=== PATIENT | female | born 1995 | race Caucasian/White ===

== ENCOUNTER 2020-01-25 10:54 | Emergency (ER) | payer OTHER, SELFPAY ==
--- NOTE | 2020-01-25 11:16 | CT_ITS ---
EXAMINATION: CT HEAD WITHOUT CONTRAST CLINICAL INFORMATION: Headache, left eye aura. COMPARISON: None TECHNIQUE: Contiguous axial imaging was performed from the skull base to vertex without intravenous administration of contrast. This CT examination was performed using dose optimization techniques as appropriate, variously including the following: *Automated exposure control *Adjustment of mA and/or kV according to patient size (this includes techniques or standardized protocols for targeted exams where dose is matched to indication/reason for exam; i.e. extremities or head) *Use of iterative reconstruction technique DLP: 652 mGy-cm FINDINGS: There is no evidence of acute intracranial hemorrhage or territorial infarction. No abnormal mass effect or midline shift is seen. [place] to white matter differentiation is well preserved. No extra-axial fluid collections are identified. The ventricles are normal in size. There is no abnormal attenuation within the brain parenchyma. The osseous structures and soft tissues are normal. The mastoid air cells and visualized portions of the paranasal sinuses are well aerated. CT/CT head/brain wo con IMPRESSION: No acute intracranial process seen.
--- NOTE | 2020-01-25 11:17 | ED.EYEPROB ---
HPI - Eye Problem General Chief complaint: Eye Problems Stated complaint: BLURRED VISION Time Seen by Provider: 01/25/20 10:56 Source: patient Mode of arrival: ambulatory Limitations: no limitations History of Present Illness chief complaint: other (has squiggly lines in L eye that is resolving and now has throbbing pain in head) Onset (ago): minute(s) (30) Onset description: sudden Duration: improved Location: left eye Eye Symptoms: pain Place: home Mechanism: none Severity: similar to previous episodes (has had ocular migraine in past but that time it was black spots today is squiggly lines) If Pain, Quality: throbbing Associated symptoms: headache Treatments Prior to Arrival: none Related Data Previous Rx's Medication Instructions Recorded glfxbpsvxl-byrhgmkjbcywp-yvfv 1 tab PO Q6H PRN #20 tab 01/25/20 cyclobenzaprine 10 mg PO TID PRN #14 tab 01/25/20 ondansetron 4 mg PO Q8H PRN #20 tab 01/25/20 Allergies Allergy/AdvReac Type Severity Reaction Status Date / Time No Known Allergies Allergy Verified 01/25/20 11:28 Review of Systems Review of Systems: Constitutional : No Fever, No Chills, No Fatigue ENT/Mouth : No sore throat, No Rhinorrhea Eyes: pos Eye Pain, No Swelling, No Redness Cardiovascular : No Chest Pain, No SOB, No Dyspnea on Exertion Respiratory : No Cough, No Sputum Gastrointestinal : pos Nausea, No Vomiting, No Diarrhea, No abdominal Pain Genitourinary : No Dysuria, No Urinary Frequency, No Hematuria, Musculoskeletal : No joint pain, No Myalgias, No Joint Swelling Skin : No Skin Lesions, No rash Neuro : No Weakness, No Numbness, No Dizziness, positive Headache Psych : No Anxiety/Panic, No Depression Heme/Lymph: No Bruising, No Bleeding,No Lymphadenopathy Endocrine : No Polyuria, No Polydipsia All other systems reviewed and are negative PMFSH Past Medical History Attestation statement: The following information was validated with the patient. Medical History Migraine Syncope Social History Social History (Updated 01/25/20 @ 11:21 by Nancy Sandoval DO) Smoking Status: Never smoker Use of substances other than those prescribed or required for medical reasons: No Advance Directives: No Advance Directives Information Provided: Yes Physical Exam Vital Signs: Vital Signs: Last Vital Signs Temp 97.9 F 01/25/20 11:22 Pulse 73 01/25/20 13:53 Resp 14 01/25/20 13:53 BP 101/65 01/25/20 13:53 Pulse Ox 98 01/25/20 13:53 Body Mass Index 16.7 Appearance: Alert. Oriented X3. No acute distress. Eyes: Pupils equal, round and reactive to light. ENT: Pharynx normal. Neck: Normal inspection. Neck supple. CVS: Normal heart rate and rhythm. Pulses normal. Respiratory: No respiratory distress. Breath sounds normal. Abdomen: Soft and non-tender. Skin: Skin warm and dry. Normal skin color. Normal skin turgor. Extremities: No lower extremity edema. No calf ttp Neuro: Oriented X 3. No motor deficit. No sensory deficit. CN 2 - 12 intact, PUPILS 4mm ERRL, visual hobbs intact, no drift Course Course Course Narrative: ocular symptoms gone but now patient has start of migraine, IV medications ordered, little effect with PO patient feels much better after medications likely migraine with aura MDM - Eye Problem MDM Narrative Medical decision making narrative: 25 yo female with hx of migraines prior ocular in the past here with resolving L eye squiggly lines now with start of nausea and headache - suspect ocular migraine, no focal deficits, will obtain CT head for mass, PO prophylactic medications Lab Data Labs: Lab Results 01/25/20 Range/Units 12:08 Urine Test NEGATIVE (NEGATIVE) Discharge Plan Discharge Clinical Impression: Ocular migraine Patient Disposition: Home, Self-Care Instructions: Migraine Headache (ED) Additional Instructions: return to ED for any worsening symptoms or concerns Prescriptions: New cyclobenzaprine 10 mg tablet 10 mg PO TID PRN (Reason: muscle spasm) Qty: 14 RF: 0 adezmmesin-parvqaszzysze-jqpr 50-325-40 mg tablet 1 tab PO Q6H PRN (Reason: pain) Qty: 20 RF: 0 ondansetron 4 mg tablet,disintegrating 4 mg PO Q8H PRN (Reason: nausea and vomiting) Qty: 20 RF: 0 Referrals: Ale Reno MD [Primary Care Provider] - 2 days (if not better) Stand Alone Forms: Work/School Release
[2020-01-25 11:22] VITALS: BP 108/74; PULSE 95; RESP 16; TEMP 36.6; O2SAT 95; BMI 16.7
[2020-01-25] MEDS: Butalb/Acetamin/Caff 50/325/40 TABLET 1 TAB PO (11:28)
[2020-01-25] MEDS: SUMAtriptan succinate 50 MG TABLET PO (11:29)
[2020-01-25 11:46] VITALS: BP 103/68; PULSE 94; RESP 14; O2SAT 96
[2020-01-25 12:23] LABS: UPreg QC Valid YES; Urine Pregnancy NEGATIVE (NEGATIVE)
[2020-01-25] MEDS: 0.9 % Sodium Chloride 1,000 ML 999 ML IVCONT (13:02)
[2020-01-25] MEDS: Ketorolac Tromethamine 30 MG/ML VIAL IVPUSH (13:03)
[2020-01-25] MEDS: Metoclopramide HCl 10 MG/2 ML VIAL 5 MG IVPUSH (13:03)
[2020-01-25] MEDS: diphenhydrAMINE HCL 50 MG/ML VIAL 25 MG IVPUSH (13:03)
--- NOTE | 2020-01-25 13:05 | PC.NURSE ---
NO RELIEF FROM PRIOR MED ADMINISTRATION, IV WITH IV MED INTERVENTIONS ORDERED/GIVEN. PT AWAITING CT SCAN AT THIS TIME. REPORTS HEADACHE REMAINS TO B/L MU-ISM REGION, NO LIGHT SENSITIVITY, NAUSEA HAS RESOLVED WITH PRIOR ZOFRAN GIVEN.
[2020-01-25 13:53] VITALS: BP 101/65; PULSE 73; RESP 14; O2SAT 98
== END 2020-01-25 14:53 | disposition home or self-care (01) ==
PROVIDERS: Emergency Provider Emergency Medicine; PCP Internal Medicine
DX: G43.009 Migraine without aura, not intractable, without status migrainosus (principal); H53.8 Other visual disturbances; Z79.899 Other long term (current) drug therapy
CPT/HCPCS: 70450; 81025; 96361; 96374; 96375; 99284; J1200; J1885; J2765

== ENCOUNTER 2020-04-02 13:59 | Outpatient (REF) | payer OTHER, SELFPAY ==
--- NOTE | ~2020-04-02 | US_ITS ---
EXAMINATION: US SOFT TISSUE OF THE NECK CLINICAL INFORMATION: BB sized palpable nodule overlying left neck soft tissue. Assess with ultrasound. Age 25. COMPARISON: CT head noncontrast 01/25/2020 TECHNIQUE: Linear high frequency ultrasound is targeted to the left neck soft tissues in the area of palpable concern. Grayscale imaging and color Doppler are performed. FINDINGS: There is no cystic or solid mass demonstrated in the area of clinical concern. No skin thickening or edema tracking in the soft tissue planes. No lymphadenopathy. No hyperemia on color Doppler. US/US soft tiss head and/or neck IMPRESSION: No ultrasound correlate for palpable area of concern left neck soft tissue. If clinically indicated, further imaging could be performed with MRI.
== END 2020-04-02 14:00 | disposition home or self-care (01) ==
LOC: HO.US 13:59
PROVIDERS: Visit Provider Physician Assistant
DX: R22.1 Localized swelling, mass and lump, neck (principal)
CPT/HCPCS: 76536

== ENCOUNTER 2020-04-21 08:04 | Outpatient (REF) | payer OTHER, SELFPAY ==
[2020-04-21 08:42] LABS: MANUAL DIFF FLAG NO
[2020-04-21 08:47] LABS: Basophils Absolute Auto 0.1 X10*3/uL (0.0-0.2); Basophils Percent Auto 1.2 % (0-2); Eosinophils Absolute Auto 0.2 X10*3/uL (0.0-0.4); Eosinophils Percent Auto 3.7 % (0-4); Hematocrit 41.1 % (37-47); Hemoglobin 13.5 g/dl (12.0-16.0); Imm Gran Abs Auto 0.01 X10*3/uL (0.00-0.03); Imm Gran Pct Auto 0.2 % (0.0-0.4); Lymphocytes Absolute Auto 1.4 X10*3/uL (1.2-4.9); Mean Corpuscular HGB Conc 32.8 g/dl (31.0-35.0); Mean Corpuscular Hemoglobin 29.2 pg (27.0-33.0); Mean Platelet Volume 9.6 fL (9.4-12.3); Monocytes Absolute Auto 0.4 X10*3/uL (0.1-1.2); Monocytes Percent Auto 7.2 % (2-11); Neutrophils Absolute Auto 3.1 X10*3/uL (2.0-8.3); Neutrophils Percent Auto 59.7 % (45-73); Platelet Count 270 X10*3/uL (160-400); Red Blood Count 4.62 X10*6/uL (4.20-5.50); Red Cell Distribution Width 12.2 % (11.0-16.0); White Blood Count 5.1 X10*3/uL (4.8-10.8)
[2020-04-21 09:10] LABS: Alanine Aminotransferase 17 U/L (0-31); Albumin Level 4.4 g/dL (3.5-5.0); Alkaline Phosphatase 76 U/L (39-117); Anion Gap 11 (12-20); Aspartate Amino Transferase 19 U/L (5-31); Bilirubin Total 0.6 mg/dL (0.0-1.0); Blood Urea Nitrogen 8 mg/dL (9-16); Calcium 9.1 mg/dL (8.4-10.2); Carbon Dioxide 29 mmol/L (22-29); Chloride 103 mmol/L (96-108); Cholesterol 167 mg/dL; Estimated Glomerular Filt Rate > 60; Glucose Fasting 82 mg/dL (60-99); HDL Cholesterol 57 mg/dL; LDL Cholesterol Calculated 93 mg/dl; Potassium 4.5 mmol/L (3.3-5.1); Sodium 138 mmol/L (135-145); Total Protein 6.3 g/dL (6.5-8.0); Triglycerides 85 mg/dL
[2020-04-21 09:32] LABS: TSH reflex Free T4 1.57 uIU/mL (0.32-4.0)
[2020-04-25 09:02] LABS: Vitamin D 25-OH, D2 <4 ng/mL; Vitamin D 25-OH, D3 54 ng/mL; Vitamin D 25-OH, Total 54 ng/mL (30-100)
== END 2020-04-21 08:05 | disposition home or self-care (01) ==
LOC: HO.LAB 08:04
PROVIDERS: PCP Internal Medicine; Visit Provider Internal Medicine
DX: R00.2 Palpitations (principal); E78.5 Hyperlipidemia, unspecified; E55.9 Vitamin D deficiency, unspecified
CPT/HCPCS: 36415; 80053; 80061; 82306; 84443; 85025

== ENCOUNTER 2020-06-02 07:56 | Outpatient (REF) | payer OTHER, SELFPAY ==
[2020-06-05 14:47] LABS: TS Negative Control Passed; TS Panel A 0; TS Panel B 0; TS Positive Control Passed; TSpotTB Negative (SeeBelow)
== END 2020-06-02 07:57 | disposition home or self-care (01) ==
LOC: HO.LAB 07:56
PROVIDERS: PCP Internal Medicine; Visit Provider Internal Medicine
DX: Z11.1 Encounter for screening for respiratory tuberculosis (principal)
CPT/HCPCS: 36415; 86481